=== PATIENT | female | born 1950 | race Caucasian/White ===

== ENCOUNTER 2023-09-10 14:26 | Emergency (ER) | payer MEDICARE, OTHER, SELFPAY ==
[2023-09-10 15:18] LABS: % Basophils 0.4 % (0-2); % Eosinophils 0.5 % (0-6); % Immature Granulocytes 0.3 % (0-0.5); % Lymphocytes 23.2 % (20.5-51.1); % Monocytes 6.8 % (1.7-9.3); % Neutrophils 68.8 % (42.2-75.2); Absolute Lymphocytes 1.7 10^3/uL (1.2-3.4); Absolute Monocytes 0.5 10^3/uL (0.1-0.6); Absolute Neutrophils 5.2 10^3/uL (1.4-6.5); Hematocrit 38.2 % (37.0-47.0); Hemoglobin 13.1 g/dL (12.0-16.0); Mean Corp Hgb Conc. 34.3 g/dL (33.0-37.0); Mean Corpuscular Volume 84.7 fL (81.0-99.0); Mean Platelet Volume 10.7 fL (7.4-10.4); Nucleated Red Blood Cells % 0 %; Platelet Count 242 10^3/uL (130-400); Red Blood Cell Count 4.51 10^6/uL (4.20-5.40); Red Cell Dist. Width 12.7 % (11.5-14.5); Urine Albumin Negative (Neg - Trace); Urine Bilirubin Negative (Negative); Urine Character Clear (Clear); Urine Color Yellow; Urine Glucose Negative (Negative); Urine Ketone 3+ (Negative); Urine Leukocyte Negative (Negative); Urine Nitrite Negative (Negative); Urine Occult Blood Trace (Negative); Urine Specific Gravity 1.015 (<1.030); Urine Urobilinogen Negative (Neg - 1+); White Blood Cell Count 7.5 10^3/uL (4.8-10.8)
[2023-09-10 15:43] LABS: Urine White Cell 0-2 /HPF (0-5)
[2023-09-10 16:15] LABS: ALT (SGPT) 26 U/L (0-35); AST (SGOT) 38 U/L (14-36); Alkaline Phosphatase 59 U/L (38-126); Blood Urea Nitrogen 19 mg/dl (7-17); Calcium 10.1 mg/dl (8.4-10.2); Carbon Dioxide 27 mmol/L (22-30); Chloride 102 mmol/L (98-107); Glucose 112 mg/dl (70-99); Lipase 99 U/L (23-300); Potassium 4.5 mmol/L (3.5-5.1); Sodium 138 mmol/L (135-145); Total Bilirubin 0.5 mg/dl (0.2-1.3); Total Protein 7.4 g/dl (6.3-8.2); eGFR > 60.00
--- NOTE | 2023-09-10 17:28 | ED.GENMED ---
History of Present Illness
<SANTOS Knight - Last Filed: 09/11/23 15:46>
General
Chief Complaint: Abdominal Pain
Source: patient
Exam Limitations: none
Time Seen by Provider: 09/10/23 17:28
Nursing documentation reviewed up to this point in time: agreed with
History of Present Illness
History of Present Illness:
Patient is a 72-year-old female who presents to the ER complaining of intermittent abdominal pain and constipation. She reports she has had right-sided and lower abdominal pain for the past 1 week. Her last good bowel movement was Wednesday 5 days
ago however Wednesday and today she did have a tiny bowel movement. She gave herself an enema which did not relieve her symptoms today. She is intermittently mildly nauseous that she reports she is urinating a lot but not burning. She
typically is constipated. She believes she is overdue for colonoscopy.
Review of Systems
<SANTOS Knight - Last Filed: 09/11/23 15:46>
Review of Systems
Allergies reviewed?: Yes
All Other Systems: ROS reviewed and negative except as documented in HPI and ROS
Constitutional: Reports no symptoms; Denies fever, fatigue or chills
Respiratory: Reports no symptoms
Cardiac: Reports no symptoms
ABD/GI: Reports abdominal pain, nausea, vomiting and constipated
: Reports frequency; Denies flank pain or urgency
Musculoskeletal: Reports no symptoms
Skin: Reports no symptoms
Neurological: Reports no symptoms
Psychiatric: Reports no symptoms
Phy Exam
<SANTOS Knight - Last Filed: 09/11/23 15:46>
General Physical Exam
General Presentation: no apparent distress
General age: appears stated age
General Skin: warm and dry
General Habitus: normal
General Mental: alert
General Hydration: appears well hydrated
Gastrointestinal Exam
Gastrointestinal Exam: soft and other ( mild rlq and diffuse mild lower abdominal pain )
Neurological Exam
Neurological Exam: alert and oriented x3
Musculoskeletal Exam
Musculoskeletal Exam: full ROM
Skin Exam
Skin Exam: normal color and warm/dry
Psychiatric Exam
Psychiatric Exam: normal mood/affect
Course
<SANTOS Knight - Last Filed: 09/11/23 15:46>
Orders/Labs/Results
Orders:
Orders
09/10/23 15:07
CMP [Comprehensive Metabolic Panel] Urgent
Complete Blood Count/With Diff Urgent
Lipase Urgent
Urinalysis Reflex To Culture Urgent
Date Specimen was Collected: 09/10/23
Time Specimen was Collected: 14:46
Urine Microscopic Reflex Cult Urgent
09/10/23 18:24
CT Abd/pel W Iv And Oral Contr Urgent
Comment:
Reason For Exam: abd pain rlq and lower abd region
Iohexol [Omnipaque] See Protocol PO NOW STA
09/10/23 22:02
Magnesium Citrate [Citroma] 300 ml PO ONCE ONE
Abnormal Lab Results
09/10/23
15:07
MPV 10.7 H fL
(7.4-10.4)
BUN 19 H mg/dl
(7-17)
Glucose 112 H mg/dl
(70-99)
AST 38 H U/L
(14-36)
Urine Ketones 3+ A
(Negative)
Ur Occult Blood Reflex Trace A
(Negative)
Urine RBC 3-6 A /HPF
(0-2)
09/10/23 15:07
09/10/23 15:07
Vital Signs
Initial and Last Documented VS:
Initial Vital Signs
Pulse Resp BP Pulse Ox
78 18 152/83 98
09/10/23 18:45 09/10/23 18:45 09/10/23 18:45 09/10/23 18:45
Last Documented Vital Signs
Temp Pulse Resp BP Pulse Ox
98.7 F 78 18 140/85 98
09/10/23 21:09 09/10/23 22:09 09/10/23 22:09 09/10/23 22:09 09/10/23 22:09
<Ghislaine Quintero MD - Last Filed: 09/10/23 18:55>
Orders/Labs/Results
Orders:
Orders
09/10/23 15:07
CMP [Comprehensive Metabolic Panel] Urgent
Complete Blood Count/With Diff Urgent
Lipase Urgent
Urinalysis Reflex To Culture Urgent
Date Specimen was Collected: 09/10/23
Time Specimen was Collected: 14:46
Urine Microscopic Reflex Cult Urgent
09/10/23 18:24
CT Abd/pel W Iv And Oral Contr Urgent
Comment:
Reason For Exam: abd pain rlq and lower abd region
Iohexol [Omnipaque] See Protocol PO NOW STA
09/10/23 22:02
Magnesium Citrate [Citroma] 300 ml PO ONCE ONE
Abnormal Lab Results
09/10/23
15:07
MPV 10.7 H fL
(7.4-10.4)
BUN 19 H mg/dl
(7-17)
Glucose 112 H mg/dl
(70-99)
AST 38 H U/L
(14-36)
Urine Ketones 3+ A
(Negative)
Ur Occult Blood Reflex Trace A
(Negative)
Urine RBC 3-6 A /HPF
(0-2)
09/10/23 15:07
09/10/23 15:07
Vital Signs
Initial and Last Documented VS:
Initial Vital Signs
Pulse Resp BP Pulse Ox
78 18 152/83 98
09/10/23 18:45 09/10/23 18:45 09/10/23 18:45 09/10/23 18:45
Last Documented Vital Signs
Temp Pulse Resp BP Pulse Ox
98.7 F 78 18 140/85 98
09/10/23 21:09 09/10/23 22:09 09/10/23 22:09 09/10/23 22:09 09/10/23 22:09
<Adithya Smith PA-C - Last Filed: 09/10/23 22:03>
Orders/Labs/Results
Orders:
Orders
09/10/23 15:07
CMP [Comprehensive Metabolic Panel] Urgent
Complete Blood Count/With Diff Urgent
Lipase Urgent
Urinalysis Reflex To Culture Urgent
Date Specimen was Collected: 09/10/23
Time Specimen was Collected: 14:46
Urine Microscopic Reflex Cult Urgent
09/10/23 18:24
CT Abd/pel W Iv And Oral Contr Urgent
Comment:
Reason For Exam: abd pain rlq and lower abd region
Iohexol [Omnipaque] See Protocol PO NOW STA
09/10/23 22:02
Magnesium Citrate [Citroma] 300 ml PO ONCE ONE
Abnormal Lab Results
09/10/23
15:07
MPV 10.7 H fL
(7.4-10.4)
BUN 19 H mg/dl
(7-17)
Glucose 112 H mg/dl
(70-99)
AST 38 H U/L
(14-36)
Urine Ketones 3+ A
(Negative)
Ur Occult Blood Reflex Trace A
(Negative)
Urine RBC 3-6 A /HPF
(0-2)
09/10/23 15:07
09/10/23 15:07
Vital Signs
Initial and Last Documented VS:
Initial Vital Signs
Pulse Resp BP Pulse Ox
78 18 152/83 98
09/10/23 18:45 09/10/23 18:45 09/10/23 18:45 09/10/23 18:45
Last Documented Vital Signs
Temp Pulse Resp BP Pulse Ox
98.7 F 78 18 140/85 98
09/10/23 21:09 09/10/23 22:09 09/10/23 22:09 09/10/23 22:09 09/10/23 22:09
<SANTOS Knight - Last Filed: 09/11/23 15:46>
MDM/Problems Addressed
MDM/Problems Addressed:
1824:Patient is a 72-year-old female who has had lower abdominal pain for the past several days. She also noted some constipation. On exam she is tender throughout the right lower quadrant and nonspecific diffuse lower abdominal tenderness. She
denies any fever chills denies any urinary dysuria but does admit to increased frequency. She is afebrile with a nml wbc , normal chemistries normal urine. Will order ct with oral and iv contrast.
1934: CAre of pt at this time transferred to [facility].
<SANTOS Knight - Last Filed: 09/11/23 15:46>
*Radiology
Radiology exam reviewed: radiology read reviewed
<Adithya Smith PA-C - Last Filed: 09/10/23 22:03>
*Critical Care Note
Total Time (30-74mins, 75-104mins- exclusive of procedures): Not Applicable
<Adithya Smith PA-C - Last Filed: 09/10/23 22:03>
Update Note
Update Note:
Received care of patient upon pending CT scan. CT scan shows mild to moderate stool in the colon to suggest constipation but no other acute finding. Patient reassured. Labs reviewed without significant finding. A bottle of magnesium citrate was
provided for the patient and she was discharged
ED Attending Note
<SANTOS Knight - Last Filed: 09/11/23 15:46>
-
Portions of this chart may have been created with voice recognition software.� Occasional wrong word or��sound alike� substitutions may have occurred due to the inherent limitations of voice recognition software.
<Ghislaine Quintero MD - Last Filed: 09/10/23 18:55>
ED Attending Note
Patient seen and examined by attending physician: Yes
I performed the substantive portion of visit, reviewed & personally made and approve the management plan that is documented in note by myself or DAVEY.: Yes
ED Attending Note:
72-year-old female presents emergency department with complaints of just not feeling well since she had a 'GI thing' about 2 weeks ago. She had a large bowel movement then, but since then she states she feels like she is constipated not fully
evacuating her bowels. She denies black stool or bleeding, chest pain, shortness of breath. However, she notes epigastric discomfort usually after she eats that comes and goes without associated radiation, back pain. She also notes intermittent
right lower quadrant pain and she got worried that she may have appendicitis which prompted her visit here. Patient urinating more than usual but also states she has been drinking more than usual, denies pain with urination or hematuria. On exam,
patient extremely well-appearing, pleasant. Abdomen soft, nontender, no rebound, no guarding. Patient did have right lower quadrant tenderness to palpation with [employer] exam. Workup proceeding, if testing unremarkable likely stable for discharge
Discharge Plan
Departure
Patient Disposition: Home (Routine Discharge)
Date of Disposition: 09/10/23
Time of Disposition: 22:02
Patient with high blood pressure during this ER visit?: No
Discharge Problem:
Abdominal pain
Instructions: Constipation, Adult (DC)
Referrals:
Gaisinsky,Radmila, SENIOR QUALITY ANALYST [Family Provider] -
Activity Restrictions/Additional Instructions:
Drink plenty fluids. Use magnesium citrate as directed. Return for worsening symptoms otherwise follow-up with family doctor
Interventions
Interventions:
*Risk Screen - Suicide Last Done: 09/10/23 14:49
*Neglect/Abuse Screening Last Done: 09/10/23 14:49
ED- Fall Risk Assessment Last Done: 09/10/23 18:44
*ED COVID-19 Vaccine History Last Done: 09/10/23 14:39
*Nursing Disposition Last Done: 09/10/23 22:16
TB-[id number] Assessment Last Done: 09/10/23 18:44
Discharge Date and Time
Discharge Date/Time: 09/10/23 22:17
Print Language: BULGARIAN
[2023-09-10 17:56] VITALS: BMI 23.6
[2023-09-10] MEDS: OMNIPAQUE 50 ML PO (18:30)
[2023-09-10 18:45] VITALS: BP 152/83
[2023-09-10 21:09] VITALS: BP 162/77
[2023-09-10 22:09] VITALS: BP 140/85
[2023-09-10] MEDS: CITROMA 300 ML PO (22:13)
== END 2023-09-10 22:17 | disposition home or self-care (01) ==
LOC: EMR 14:26
PROVIDERS: EMERGENCY PHYSICIAN Emergency Medicine; FAMILY PHYSICIAN Nurse Practitioner Adult Health
DX: R10.31 Right lower quadrant pain (principal)
CPT/HCPCS: 99285; 74177; 80053; 81003; 81015; 83690; 85025; Q9967